=== PATIENT | male | born 1940 | race Caucasian/White ===

== ENCOUNTER → 2016-09-14 | Outpatient (CLI) | payer MEDICARE, BC ==
[~2016-09-14] MED LIST: AMLO10TA2 PO; GADOBUTROL 10 MMOL/10 ML VIAL IV ONE; LOSA25TA4 PO
--- NOTE | 2016-09-14 11:41 | KCIC ---
PROCEDURE Carotid Doppler ultrasound HISTORY Headache. Vertigo. Hypertension. TECHNIQUE Grayscale, color Doppler and duplex analysis. COMPARISON None FINDINGS Right Focal plaque is identified at the parotid bulb and proximal internal carotid artery. No high-grade luminal narrowing. No abnormal velocity elevation. Right ic/cc ratio is 0.87. Right vertebral artery is patent with normal directional flow. Left Focal plaque identified within the left carotid bulb, and proximal left internal carotid artery. Left vertebral artery is patent with normal direction of flow. No abnormal velocity elevation. Left ic/cc ratio is 1.13. IMPRESSION Focal plaque bilaterally, but no evidence of hemodynamically significant stenosis. Electronically signed by: Anam Pulliam MD (Sep 14, 2016 11:39:23)
--- NOTE | 2016-09-14 14:14 | KCIC ---
PROCEDURE MRI of the brain without and with contrast 09/14/2016 HISTORY Headaches and vertigo for the last year. TECHNIQUE Unenhanced T1 weighted sagittal and axial and FLAIR, gradient echo, T2 weighted and diffusion weighted axial images of the brain were obtained. After the intravenous administration of 10 cc of Gadavist, enhanced T1 weighted axial and coronal images of the brain were obtained. FINDINGS There is generalized parenchymal atrophy. Patchy, confluent and multiple focal areas of abnormally increased signal intensity are seen within the periventricular and subcortical white matter of both cerebral hemispheres on the FLAIR and T2 weighted images consistent with areas of small vessel ischemic disease. No acute parenchymal abnormality is seen. No extra-axial fluid collection is noted. No area of abnormal contrast enhancement is seen. Mild mucosal thickening is seen scattered throughout the paranasal sinuses. There are minimal bilateral mastoid effusions. Normal flow voids are seen within the major vascular structures surrounding the brain parenchyma. IMPRESSION No acute parenchymal abnormality is seen. Electronically signed by: Rey Cardenas MD (Sep 14, 2016 14:13:02)
== END | disposition home or self-care (01) ==
LOC: KCIC US 08:48
PROVIDERS: ATTEND Family Medicine
DX: I65.23 Occlusion and stenosis of bilateral carotid arteries (principal); R51 Headache; R42 Dizziness and giddiness
CPT/HCPCS: 70553; 82565; 93880

== ENCOUNTER → 2017-06-15 | Outpatient (CLI) | payer MEDICARE ==
[~2017-06-15] MED LIST changes: -GADOBUTROL 10 MMOL/10 ML VIAL IV ONE
--- NOTE | 2017-06-15 09:53 | KCIC ---
Right foot, 2 views, 06/15/2017: HISTORY: Foot pain and swelling with redness No fracture or dislocation is identified. No destructive bony lesion is seen. No significant arthritic changes are evident. A small inferior calcaneal spur is noted. There is moderate diffuse soft tissue swelling. IMPRESSION: No acute bony abnormality is detected. Electronically signed by: Jorgito Dupree MD (06/15/2017 9:50 AM) [id number]
--- NOTE | 2017-06-15 11:18 | KCIC ---
Right lower extremity venous doppler ultrasound Indication: Pain and swelling. . Technique: Color Doppler, grayscale, duplex, spectral waveform analysis is used to evaluate the lower extremity deep venous system, including the common femoral vein, superficial femoral vein, popliteal vein, tibioperoneal trunk and calf veins. Findings: No evidence of deep venous thrombosis. Normal response to augmentation, normal compressibility and normal phasicity is demonstrated. There is some soft tissue edema identified in the medial ankle region. Impression: Negative for deep venous thrombosis Electronically signed by: Anam Pulliam MD (06/15/2017 11:14 AM) [facility]
== END | disposition home or self-care (01) ==
LOC: KCIC US 07:58
PROVIDERS: ATTEND Family Medicine
DX: M77.31 Calcaneal spur, right foot (principal); M79.89 Other specified soft tissue disorders; R60.0 Localized edema
CPT/HCPCS: 73620; 93971

== ENCOUNTER → 2021-05-23 | Outpatient (CLI) | payer MEDICARE ==
[~2021-05-23] MED LIST changes: +ACET325T9 PO; +ACET500T68 PO; +AMLO-187 PO; -AMLO10TA2 PO; +CEPH500T PO; +CHOL10004 PO; +DOXY-96 PO; +LOSA1TAB22 PO; -LOSA25TA4 PO; +LOSA25TA54 PO; +NAPR220C62 PO; +OMEG1CAP50 PO; +TRAM50TA PO
--- NOTE | 2021-05-23 11:09 | RAD ---
EXAM: 1. Right lower extremity arterial Doppler. 2. Right lower extremity venous Doppler. HISTORY: Right lower extremity pain/swelling. Claudication. COMPARISON: None. FINDINGS: Grayscale and Doppler analysis of the right lower extremity arterial system was performed. There are triphasic waveforms from the common femoral artery through the popliteal artery. There is e levated peak systolic velocity within the midportion of the posterior tibial artery, which is associa francie with a monophasic waveform. There are also monophasic within the peroneal artery and dorsalis ped is artery. The anterior tibial artery demonstrates a triphasic waveforms more proximally. Grayscale and Doppler analysis of the right lower extremity deep venous system was performed with gra ded compression and augmentation. The common femoral, greater saphenous, superficial femoral, poplite al and calf veins were assessed. There is no evidence of deep venous thrombosis. The greater saphenous vein has been harvested. IMPRESSION: 1. Hemodynamically significant stenosis within the right mid posterior tibial artery. There is also s ignificantly flow-limiting stenosis within the peroneal artery, and distally within the anterior tibi al/dorsalis pedis arteries. 2. No evidence of deep venous thrombosis. Electronically signed by: Dangelo Johnson MD (05/23/2021 11:07 AM) [facility]
== END ==
LOC: US 10:08
PROVIDERS: ATTEND Family Medicine
DX: I70.201 Unspecified atherosclerosis of native arteries of extremities, right leg (principal); I87.1 Compression of vein; M79.89 Other specified soft tissue disorders
CPT/HCPCS: 93926; 93971

== ENCOUNTER 2021-05-30 08:43 | Outpatient (CLI) | payer MEDICARE ==
[~2021-05-30] VITALS: Ht 190.5 cm; Wt 93.2 kg
[2021-05-30] VITALS (10 sets, daily range): BP systolic 127–163; BP diastolic 67–92
[~2021-05-30 08:43] MED LIST changes: -ACET325T9 PO; -ACET500T68 PO; -CEPH500T PO; -CHOL10004 PO; -DOXY-96 PO; +HEPARIN for ARTERIAL LINE 1,500 ML ONE; +IODIXANOL 320 MG/ML 100 ML VIAL. ONE; +LIDOCAINE WITH 8.4% SOD BICARB 3 ML DISP.SYRIN. ONE; -LOSA1TAB22 PO; -NAPR220C62 PO; -OMEG1CAP50 PO; -TRAM50TA PO
[2021-05-30] MEDS ORDERED: NAPR220C62 PO (09:02)
[2021-05-30] MEDS ORDERED: OMEG1CAP50 PO (09:02)
[2021-05-30] MEDS ORDERED: ACET325T9 PO (09:02)
[2021-05-30] MEDS ORDERED: DOXY-96 PO (09:02)
[2021-05-30] MEDS ORDERED: CHOL10004 PO (09:02)
[2021-05-30] MEDS ORDERED: CEPH500T PO (09:02)
[2021-05-30] MEDS ORDERED: ACET500T68 PO (09:02)
[2021-05-30] MEDS ORDERED: TRAM50TA PO (09:02)
[2021-05-30] MEDS ORDERED: LOSA1TAB22 PO (09:02)
[2021-05-30 09:27] LABS: BASO # 0.1 x10^3/uL (0.0-0.2); BASO % 1 % (0-3); EOS # 0.2 x10^3/uL (0.0-0.7); EOS % 2 % (0-3); HEMATOCRIT 41.6 % (39.0-53.0); HEMOGLOBIN 13.8 g/dL (13.0-17.5); LYMPH # 1.5 x10^3/uL (1.0-4.8); LYMPH % 13 % (24-48); MEAN CORPUSCULAR HEMOGLOBIN 28 pg (25-35); MEAN CORPUSCULAR HGB CONC 33 g/dL (31-37); MEAN CORPUSCULAR VOLUME 85 fL (79-100); MONO # 0.7 x10^3/uL (0.0-1.1); MONO % 6 % (0-9); NEUT % 78 % (31-73); PLATELET COUNT 449 x10^3/uL (140-400); RED BLOOD COUNT 4.88 x10^6/uL (4.30-5.70); RED CELL DISTRIBUTION WIDTH 14.4 % (11.5-14.5); WHITE BLOOD COUNT 11.5 x10^3/uL (4.0-11.0)
[2021-05-30 09:34] LABS: CALCIUM 9.4 mg/dL (8.5-10.1); CREATININE 1.3 mg/dL (0.7-1.3); GFR 52.9; POTASSIUM 3.9 mmol/L (3.5-5.1)
[2021-05-30 09:40] LABS: ALBUMIN 2.9 g/dL (3.4-5.0); ALBUMIN/GLOBULIN RATIO 0.6 (1.0-1.7); TOTAL BILIRUBIN 0.4 mg/dL (0.2-1.0); TOTAL PROTEIN 7.6 g/dL (6.4-8.2)
[2021-05-30] MEDS ORDERED: MIDAZOLAM HCL/PF 5 MG/5 ML VIAL. ONE (10:21)
[2021-05-30] MEDS ORDERED: fentaNYL PF VIAL 100 MCG/2 ML VIAL ONE (10:22)
[2021-05-30] MEDS ORDERED: HEPARIN for IV BOLUS 10,000 UNIT/10 ML VIAL. ONE (10:22)
[2021-05-30] MEDS ORDERED: LIDOCAINE WITH 8.4% SOD BICARB 3 ML DISP.SYRIN. IJ ONE (11:45)
[2021-05-30] MEDS ORDERED: HEPARIN for IV BOLUS 10,000 UNIT/10 ML VIAL. IV ONE (11:45)
[2021-05-30] MEDS ORDERED: fentaNYL PF VIAL 100 MCG/2 ML VIAL IV ONE (11:45)
[2021-05-30] MEDS ORDERED: MIDAZOLAM HCL/PF 5 MG/5 ML VIAL. IV ONE (11:45)
[2021-05-30] MEDS ORDERED: IODIXANOL 320 MG/ML 100 ML VIAL. IART ONE (11:45)
--- NOTE | 2021-05-30 15:42 | NUR ---
Discharge Note: MORALES HOLLOWAY Discharge instructions and discharge home medications reviewed with Patient and a copy given. All questions have been answered and understanding verbalized. The following instructions and handouts were given: Groin site care and moderate sedation. Discontinued lines and drains: Right FA IV dc'd,tip intact, and bandage applied. Patient discharged to home with via personal vehicle.
--- NOTE | 2021-05-31 14:00 | RAD ---
05/30/2021 1. Abdominal aortogram 2. Pelvic angiography 3. Right lower extremity angiography 4. Angioplasty of proximal and distal posterior tibial artery stenoses INDICATION: Right lower extremity discomfort. Wounds. 6 intermittent swelling. COMPARISON STUDY: Lower extremity duplex ultrasound May 23, 2021 Discussion: Consent: The procedure was explained in its entirety to the patient or the patients designated repre sentative by a member of the treatment team, including a discussion of the risks, benefits and common ly accepted alternatives to the procedure, as well as the expected consequences of no therapy whatsoe brandi. Discussion of the risks included, but was not limited to, those that are most frequent and tho se that are rare but possibly severe or life-threatening, as well as the possibility of unforeseen co mplications. The left groin was prepped and draped using maximum sterile technique, including the use of: Current guideline approved cutaneous antisepsis, a large sterile sheet to establish a sterile field. Addition ally the mobile heavy equipment operator wore a hat, mask, sterile gloves, a sterile gown during the procedure as well as pr acticed acceptable hand hygiene prior to the procedure. Ultrasound evaluation demonstrates left common femoral artery be patent. One percent lidocaine was ad ministered for local anesthesia. Under direct ultrasound guidance the left common femoral artery was accessed with micropuncture technique. Reference ultrasound images were saved medical record. A flush catheter was advanced into the abdominal aorta. Abdominal aortogram was obtained. There is an infrarenal abdominal aortic aneurysm. Tortuosity of the abdominal aorta is seen. Due to technical fa ctors aneurysm size is uncertain but estimated at 3 to 4 cm. The catheter was repositioned in the inferior abdominal aorta and pelvic angiography was performed de monstrating mild diffuse irregularity without hemodynamically significant stenosis of the common, or external iliac arteries. The catheter was repositioned in the right common femoral artery and right lower extremity angiograph y performed. The right common femoral artery is patent. Visualized profunda artery is patent. Proxima l right SFA is patent. The catheter was then repositioned in the right superficial femoral artery and angiograms of the righ t lower extremity performed. The right superficial femoral artery and popliteal artery are patent. 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 The po sterior tibial peroneal trunk is patent. The posterior tibial artery is the dominant blood supply to the foot and is large in caliber with the exception of a high-grade proximal end high-grade distal st enoses. The peroneal artery is also patent to the ankle. In the foot there is not a reconstitution of a robust dorsalis pedis artery. Lateral plantar artery appears to be dominant. Angioplasty of the proximal and distal posterior tibial stenosis was performed at 3 mm with significa ntly improved morphology and flow. A guidewire was advanced into the proximal anterior tibial artery, but could not successfully be advanced to the distal anterior tibial artery. Angiograms the access site confirm the mid common femoral puncture. A minx closure device was deploye d. Hemostasis was achieved. Sterile dressings were applied. No immediate complications were identifie d. Total fluoroscopy time: 16 minutes Dose area product: 107 Galindo centimeter squared Sedation: The procedure was performed under conscious sedation including continuous cardiopulmonary m onitoring via a dedicated sedation nurse. [id number] sedation time: 116 minutes IMPRESSION: 1. Abdominal aortic aneurysm. Recommend CT angiography of the abdomen and pelvis for more detailed ev aluation, as well as serves a baseline for surveillance. Should aneurysm prove to be 5 cm or greater, vascular surgery consultation recommended. 2. No hemodynamically significant iliac, femoral popliteal stenosis 3. High-grade stenoses of the posterior tibial artery which is the dominant blood supply to the foot, treated with balloon angioplasty 4. 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 Peroneal artery is patent. Electronically signed by: Terry Blair MD (05/31/2021 8:20 AM) [id number]
== END 2021-05-30 15:44 | disposition home or self-care (01) ==
LOC: INTRAD 08:43
PROVIDERS: ATTEND Family Medicine
DX: I70.201 Unspecified atherosclerosis of native arteries of extremities, right leg (principal); I10 Essential (primary) hypertension; M19.90 Unspecified osteoarthritis, unspecified site; Z87.442 Personal history of urinary calculi; Z85.828 Personal history of other malignant neoplasm of skin; F17.210 Nicotine dependence, cigarettes, uncomplicated; Z98.890 Other specified postprocedural states
CPT/HCPCS: 36415; 37228; 75625; 75710; 80053; 85025; 85610; 99152; 99153; C1725; C1760; C1769; C1892; C1894; J1644; J2250; J3010; J3490; Q9967; G0269

== ENCOUNTER → 2021-12-08 | Outpatient (CLI) | payer MEDICARE ==
[2021-05-30 15:15] VITALS: BP 129/77
[~2021-12-08] MED LIST changes: +ACET325T9 PO; +ACET500T68 PO; +CEPH500T PO; +CHOL10004 PO; +DOXY-96 PO; -HEPARIN for ARTERIAL LINE 1,500 ML ONE; -IODIXANOL 320 MG/ML 100 ML VIAL. ONE; -LIDOCAINE WITH 8.4% SOD BICARB 3 ML DISP.SYRIN. ONE; +LOSA1TAB22 PO; +NAPR220C62 PO; +OMEG1CAP50 PO; +TRAM50TA PO
--- NOTE | 2021-12-08 15:57 | KCIC ---
STUDY: US ABDOMEN LIMITED INDICATION: Abdominal mass of unspecified location. COMPARISON: Abdominal aortogram 05/30/2021. TECHNIQUE: Limited abdominal ultrasound targeted at the mid to lower abdomen. Findings: The patient's abdominal mass corresponds to fusiform infrarenal abdominal aortic aneurysm . At the mi d abdominal aorta the aneurysm sac is measured at 5.3 x 5.9 cm and more distally measured at 5.3 x 5 cm. The proximal aspect of the abdominal aorta was not able to be visualized nor were the iliac arter ies. Impression: Fusiform infrarenal abdominal aortic aneurysm accounting for the patient's abdominal mass with the mi d abdominal aorta measuring 5.3 x 5.9 cm and the distal abdominal aorta measuring 5.3 x 5 cm. Further evaluation is recommended with CT angiography especially as the proximal abdominal aorta and iliac a rteries were not able to visualized. Abdominal aortic aneurysm measuring > 5.5 cm as above. Risk of rupture at this size mandates surgic al repair. Recommend vascular surgery consultation. The results of the study were relayed to Dr. Norwood's nurse by the performing fleet technician after the comp letion of the exam on 12/08/2021 Electronically signed by: TIMO BRAY MD (12/08/2021 3:54 PM) [id number]
== END ==
LOC: KCIC US 07:50
PROVIDERS: ATTEND Family Medicine
DX: I71.4 Abdominal aortic aneurysm, without rupture (principal); R19.00 Intra-abdominal and pelvic swelling, mass and lump, unspecified site
CPT/HCPCS: 76705

== ENCOUNTER 2022-01-31 14:05 | Emergency (ER) | payer MEDICARE ==
[~2022-01-31] VITALS: Ht 190.5 cm; Wt 94.5 kg
[2022-01-31] MEDS ORDERED: NITROGLYCERIN SUBLINGUAL 0.4 MG BOTTLE OF 25. SL PRN (14:45)
[2022-01-31] MEDS ORDERED: ASPIRIN CHEWABLE 81 MG TABLET. PO ONE (14:45)
[2022-01-31 14:48] LABS: BASO % 1 % (0-3); EOS # 0.2 x10^3/uL (0.0-0.7); EOS % 3 % (0-3); HEMATOCRIT 42.2 % (39.0-53.0); HEMOGLOBIN 13.9 g/dL (13.0-17.5); LYMPH # 1.7 x10^3/uL (1.0-4.8); LYMPH % 22 % (24-48); MEAN CORPUSCULAR HEMOGLOBIN 28 pg (25-35); MEAN CORPUSCULAR HGB CONC 33 g/dL (31-37); MEAN CORPUSCULAR VOLUME 86 fL (79-100); MONO # 0.5 x10^3/uL (0.0-1.1); MONO % 7 % (0-9); NEUT # 5.1 x10^3/uL (1.8-7.7); NEUT % 68 % (31-73); PLATELET COUNT 233 x10^3/uL (140-400); RED BLOOD COUNT 4.89 x10^6/uL (4.30-5.70); RED CELL DISTRIBUTION WIDTH 14.4 % (11.5-14.5); WHITE BLOOD COUNT 7.6 x10^3/uL (4.0-11.0)
[2022-01-31 14:59] LABS: CALCIUM 8.9 mg/dL (8.5-10.1); CREATININE 1.1 mg/dL (0.7-1.3); GFR 63.9
--- NOTE | 2022-01-31 15:03 | RAD ---
XR CHEST 1V History: Reason: chest pain / Spl. Instructions: / History: Comparison: None. Findings: No consolidation or pleural effusion. Normal heart size. No pneumothorax. Impression: 1. No acute cardiopulmonary process. Electronically signed by: Ambrosio Hurst DO (01/31/2022 3:01 PM) [id number]
[2022-01-31 15:05] LABS: ALBUMIN 3.4 g/dL (3.4-5.0); TOTAL BILIRUBIN 0.3 mg/dL (0.2-1.0); TOTAL PROTEIN 6.7 g/dL (6.4-8.2)
[2022-01-31 19:12] VITALS: BP 173/100
--- NOTE | 2022-01-31 19:22 | PHYS DOC ---
Past Medical History Additional Past Medical Histor: AAA Past Surgical History: Knee Replacement Smoking Status: Former Smoker Alcohol Use: Occasionally General Adult EDM: Chief Complaint: CHEST PAIN HPI: HPI: Patient is a 81 year old [f__sex] who presents with [] Review of Systems: Review of Systems: Constitutional: Denies fever or chills. [] Eyes: Denies change in visual acuity. [] HENT: Denies nasal congestion or sore throat. [] Respiratory: Denies cough or shortness of breath. [] Cardiovascular: Denies chest pain or edema. [] GI: Denies abdominal pain, nausea, vomiting, bloody stools or diarrhea. [] : Denies dysuria. [] Musculoskeletal: Denies back pain or joint pain. [] Integument: Denies rash. [] Neurologic: Denies headache, focal weakness or sensory changes. [] Endocrine: Denies polyuria or polydipsia. [] Lymphatic: Denies swollen glands. [] Psychiatric: Denies depression or anxiety. [] Heart Score: C/O Chest Pain: Yes Risk Factors: Risk Factors: DM, Current or recent (<one month) smoker, HTN, HLP, family hi story of CAD, obesity. Risk Scores: Score 0 - 3: 2.5% MACE over next 6 weeks - Discharge Home Score 4 - 6: 20.3% MACE over next 6 weeks - Admit for Clinical Observation Score 7 - 10: 72.7% MACE over next 6 weeks - Early Invasive Strategies Current Medications: Current Medications Medications (Trade) Dose Ordered Sig/Melinda Start Time Stop Time Status Last Admin Dose Admin Aspirin (Aspirin Chewable) 324 mg 1X ONCE 01/31/22 14:45 01/31/22 14:46 DC 01/31/22 14:52 324 MG Nitroglycerin (Nitrostat) 0.4 mg PRN Q5MIN PRN 01/31/22 14:45 02/01/22 14:44 01/31/22 15:57 0.4 MG Allergies: Allergies: Allergies Coded Allergies Type Severity Reaction Last Updated Verified No Known Drug Allergies 09/14/16 No Physical Exam: PE: Constitutional: Well developed, well nourished, no acute distress, non-toxic appearance. [] HENT: Normocephalic, atraumatic, bilateral external ears normal, oropharynx moist, no oral exudates, nose normal. [] Eyes: PERRLA, EOMI, conjunctiva normal, no discharge. [] Neck: Normal range of motion, no tenderness, supple, no stridor. [] Cardiovascular:Heart rate regular rhythm, no murmur [] Lungs & Thorax: Bilateral breath sounds clear to auscultation [] Abdomen: Bowel sounds normal, soft, no tenderness, no masses, no pulsatile masses. [] Skin: Warm, dry, no erythema, no rash. [] Back: No tenderness, no CVA tenderness. [] Extremities: No tenderness, no cyanosis, no clubbing, ROM intact, no edema. [] Neurologic: Alert and oriented X 3, normal motor function, normal sensory function, no focal deficits noted. [] Psychologic: Affect normal, judgement normal, mood normal. [] Current Patient Data: Labs: Laboratory Tests Test 01/31/22 14:17 01/31/22 17:47 White Blood Count 7.6 x10^3/uL (4.0-11.0) Red Blood Count 4.89 x10^6/uL (4.30-5.70) Hemoglobin 13.9 g/dL (13.0-17.5) Hematocrit 42.2 % (39.0-53.0) Mean Corpuscular Volume 86 fL (79-100) Mean Corpuscular Hemoglobin 28 pg (25-35) Mean Corpuscular Hemoglobin Concent 33 g/dL (31-37) Red Cell Distribution Width 14.4 % (11.5-14.5) Platelet Count 233 x10^3/uL (140-400) Neutrophils (%) (Auto) 68 % (31-73) Lymphocytes (%) (Auto) 22 % (24-48) L Monocytes (%) (Auto) 7 % (0-9) Eosinophils (%) (Auto) 3 % (0-3) Basophils (%) (Auto) 1 % (0-3) Neutrophils # (Auto) 5.1 x10^3/uL (1.8-7.7) Lymphocytes # (Auto) 1.7 x10^3/uL (1.0-4.8) Monocytes # (Auto) 0.5 x10^3/uL (0.0-1.1) Eosinophils # (Auto) 0.2 x10^3/uL (0.0-0.7) Basophils # (Auto) 0.0 x10^3/uL (0.0-0.2) Sodium Level 141 mmol/L (136-145) Potassium Level 4.0 mmol/L (3.5-5.1) Chloride Level 103 mmol/L (98-107) Carbon Dioxide Level 30 mmol/L (21-32) Anion Gap 8 (6-14) Blood Urea Nitrogen 29 mg/dL (8-26) H Creatinine 1.1 mg/dL (0.7-1.3) Estimated GFR (Cockcroft-Gault) 63.9 BUN/Creatinine Ratio 26 (6-20) H Glucose Level 85 mg/dL (70-99) Calcium Level 8.9 mg/dL (8.5-10.1) Total Bilirubin 0.3 mg/dL (0.2-1.0) Aspartate Amino Transferase (AST) 18 U/L (15-37) Alanine Aminotransferase (ALT) 16 U/L (16-63) Alkaline Phosphatase 82 U/L (46-116) Troponin I High Sensitivity 23 ng/L (4-75) 23 ng/L (4-75) GS-Pjr-Q-Type Natriuretic Peptide 2333 pg/mL (0-449) H Total Protein 6.7 g/dL (6.4-8.2) Albumin 3.4 g/dL (3.4-5.0) Albumin/Globulin Ratio 1.0 (1.0-1.7) Lipase 97 U/L (73-393) Laboratory Tests 01/31/22 14:17 Laboratory Tests 01/31/22 14:17 Vital Signs: Vital Signs Date Time Temp Pulse Resp B/P (MAP) Pulse Ox O2 Delivery O2 Flow Rate FiO2 01/31/22 15:57 71 202/97 01/31/22 15:42 18 100 Room Air 01/31/22 14:07 97.5 97.5 EKG: EKG: [] Radiology/Procedures: Radiology/Procedures: XR CHEST 1V History: Reason: chest pain / Spl. Instructions: / History: Comparison: None. Findings: No consolidation or pleural effusion. Normal heart size. No pneumothorax. Impression: 1. No acute cardiopulmonary process. Impression: Chest pain Course & Med Decision Making: Course & Med Decision Making Patient remained hemodynamically stable while in the emergency department. He was evaluated at the bedside with a physical exam. EKG obtained and shows no evidence of any acute ischemic changes. Chest x-ray is clear. Basic labs obtained and are unremarkable except for an elevated BNP. He has 2 negative troponins. Patient's heart score is 4. I discussed possible admission with the patient he does not wish to be admitted at this time. Given his have discussed the patient with cardiology who will see the patient in clinic in the morning and set him up for stress test. Patient is amenable to this plan. Dragon Disclaimer: Dragon Disclaimer: This electronic medical record was generated, in whole or in part, using a voice recognition dictation system. Departure Departure Impression: Primary Impression: Chest pain Disposition: HOME / SELF CARE / HOMELESS Condition: IMPROVED Referrals: ISIDRO LINARES MD (PCP) Follow up with Dr. Sandy in the morning to set up your stress test. YOVANA SANDY MD Patient Instructions: Chest Pain (Nonspecific) MESFIN HOWELL MD January 31, 2022 19:22
--- NOTE | 2022-02-02 08:49 | EKG ---
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
--- NOTE | 2022-02-02 08:49 | EKG ---
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
== END 2022-01-31 19:25 | disposition home or self-care (01) ==
LOC: ER 14:05
DX: R07.89 Other chest pain (principal); Z87.891 Personal history of nicotine dependence
CPT/HCPCS: 36415; 71045; 80053; 83690; 83880; 84484; 85025; 93005; 99285-25